=== PATIENT | female | born 1955 | race Two or more races ===

== ENCOUNTER 2023-08-08 13:35 | Inpatient (IN) | payer OTHER ==
[~2023-08-08] VITALS: Ht 157.5 cm; Wt 45.4 kg
[2023-08-08] MEDS ORDERED: VITAMIN D310 MC4 PO (14:44)
[2023-08-08] MEDS ORDERED: FOSAMAX70 MG PO (14:44)
[2023-08-08 15:35] LABS: HEMOGLOBIN 9.9 g/dL (12.0-15.00); MEAN CORPUSCULAR HEMOGLOBIN 21.1 pg (27.00-32.0); MEAN CORPUSCULAR HGB CONC 30.8 g/dl (32.0-36.0); PLATELET COUNT 472 K/uL (150-450); RED BLOOD COUNT 4.68 M/uL (4.00-6.00); RED CELL DISTRIBUTION WIDTH 22.5 % (11.5-14.5)
[2023-08-08 15:37] LABS: MEAN CELL VOLUME 68.4 fL (80.00-100.00)
[2023-08-08 15:48] LABS: CREATININE SERUM 0.7 mg/dL (0.55-1.02); GFR 83.72; POTASSIUM 3.01 mEq/L (3.5-5.1)
[2023-08-08 15:55] LABS: INR 1.09; PROTHROMBIN TIME 11.4 SECONDS (9.0-11.5)
[2023-08-08 15:58] LABS: PARTIAL THROMBOPLASTIN TIME < 20.0 SECONDS (22.0-34.0)
[2023-08-10 07:26] LABS: ALBUMIN 1.3 gm/dL (3.4-5.0); CALCIUM 7.6 mg/dL (8.5-10.1); CREATININE SERUM 0.46 mg/dL (0.55-1.02); GFR 135.91; MAGNESIUM 2.6 mg/dL (1.8-2.4); PHOSPHOROUS 2.7 mg/dL (2.5-4.9); POTASSIUM 3.8 mEq/L (3.5-5.1)
[2023-08-10 07:43] LABS: HEMATOCRIT 26.6 % (36.0-45.00); PLATELET COUNT 427 K/uL (150-450); RED CELL DISTRIBUTION WIDTH 21.8 % (11.5-14.5)
[2023-08-10 07:45] LABS: HEMOGLOBIN 8.2 g/dL (12.0-15.00); MEAN CELL VOLUME 68.3 fL (80.00-100.00)
[2023-08-11] MEDS ORDERED: INTESTINEX680 M1 PO (10:30)
[2023-08-11] MEDS ORDERED: HYOSCYAMINE0.125 M1 SL (10:30)
[2023-08-11] MEDS ORDERED: INTEGRA F CAPS1 EACH PO (10:31)
== END 2023-08-11 13:25 | disposition home or self-care (01) | DRG 330 ==
LOC: ER 13:35 → MEDI 19:50 → SURG 08-09 10:25
PROVIDERS: Emergency Medicine; Surgery; ADMIT Internal Medicine; ATTEND Internal Medicine
PROC: 0D1L4Z4 Bypass Transverse Colon to Cutaneous, Percutaneous Endoscopic Approach (ICD-10-PCS; principal; 2023-08-09 07:30)
DX: C20 Malignant neoplasm of rectum (principal); K56.609 Unspecified intestinal obstruction, unspecified as to partial versus complete obstruction; K92.2 Gastrointestinal hemorrhage, unspecified; K59.00 Constipation, unspecified; D64.9 Anemia, unspecified; Z74.01 Bed confinement status

== ENCOUNTER 2023-09-03 09:43 | Day surgery (SDC) | payer OTHER ==
[2023-08-29 13:43] LABS: PH,URINE 5.5 (5.0-8.0); URINE APPEARANCE Cloudy; URINE BILIRRUBIN Small (NEGATIVE); URINE COLOR Dark Yellow; URINE GLUCOSE Negative (NEGATIVE); URINE LEUKOCYTE Small; URINE NITRATE Positive; URINE PROTEIN 30 (NEGATIVE)
[2023-08-29 13:46] LABS: HEMATOCRIT 36.5 % (36.0-45.00); HEMOGLOBIN 11.5 g/dL (12.0-15.00); MEAN CELL VOLUME 71.7 fL (80.00-100.00); MEAN CORPUSCULAR HEMOGLOBIN 22.7 pg (27.00-32.0); MEAN CORPUSCULAR HGB CONC 31.6 g/dl (32.0-36.0); PLATELET COUNT 428 K/uL (150-450); RED BLOOD COUNT 5.09 M/uL (4.00-6.00)
[2023-08-29 13:47] LABS: RED CELL DISTRIBUTION WIDTH 26.1 % (11.5-14.5)
[2023-08-29 13:48] LABS: URINE BACTERIA 6381.7 uL (0.0-1933); URINE EPITHELIAL CELLS 34.9 uL (0.0-38.8); URINE RBC 34.2 uL (0.0-20.8); URINE WBC 244.1 uL (0.0-23.2)
[2023-08-29 13:52] LABS: URINE BLOOD TRACE
[2023-08-29 14:21] LABS: INR 1.04; PARTIAL THROMBOPLASTIN TIME 26.5 SECONDS (22.0-34.0); PROTHROMBIN TIME 10.9 SECONDS (9.0-11.5)
[2023-08-29 14:24] LABS: ALBUMIN 2.4 gm/dL (3.4-5.0); BILIRUBIN TOTAL 0.35 mg/dL (0.3-1.2); CALCIUM 9.4 mg/dL (8.5-10.1); CREATININE SERUM 0.5 mg/dL (0.55-1.02); GFR 123.44; POTASSIUM 4.21 mEq/L (3.5-5.1); TOTAL PROTEIN 6.4 gm/dL (6.4-8.2)
[~2023-09-03 09:43] MED LIST: FOSAMAX70 MG PO; HYOSCYAMINE0.125 M1 SL; INTEGRA F CAPS1 EACH PO; INTESTINEX680 M1 PO; VITAMIN D310 MC4 PO
[2023-09-03] MEDS ORDERED: BUPIVACAINE HCL/PF 0.5% 30ML ML ONE (13:09)
[2023-09-03] MEDS ORDERED: LIDOCAINE HCL 1%/Epi 20ML VIAL IJ ONE ×2 (13:10→15:15)
[2023-09-03] MEDS ORDERED: CEFAZOLIN SODIUM 1,000 MG VIAL ONE ×2 (13:34→13:45)
[2023-09-03] MEDS ORDERED: TRAM1TAB98 PO (14:51)
[2023-09-03] MEDS ORDERED: BUPIVACAINE HCL 30 ML VIAL IJ ONE (15:15)
[2023-09-03] MEDS ORDERED: HEPARIN SODIUM,PORCINE 1,000 UNITS/ML VIAL IJ ONE (15:15)
[2023-09-03] MEDS ORDERED: CEFAZOLIN SODIUM 1,000 MG VIAL IV ONE (15:15)
== END 2023-09-03 16:35 | disposition home or self-care (01) ==
LOC: CIR.AMB 09:43
PROVIDERS: ATTEND Surgery
DX: C20 Malignant neoplasm of rectum (principal); Z91.041 Radiographic dye allergy status; Z20.822 Contact with and (suspected) exposure to COVID-19; I10 Essential (primary) hypertension